=== PATIENT | male | born 2000 | race African-American/Black ===

== ENCOUNTER 2019-05-15 22:53 | Emergency (ER) | payer OTHER ==
[~2019-05-15] VITALS: Ht 167.6 cm; Wt 79.5 kg
[2019-05-15 23:04] VITALS: BP 139/89; PULSE 64; TEMP 98.8
== END 2019-05-15 23:10 | disposition left against medical advice (07) ==
LOC: COL.ER 22:53
DX: R19.7 Diarrhea, unspecified (principal); R10.9 Unspecified abdominal pain

== ENCOUNTER 2019-10-09 19:58 | Emergency (ER) | payer OTHER ==
[~2019-10-09] VITALS: Ht 167.6 cm; Wt 79.5 kg
[2019-10-09 21:06] VITALS: BP 130/40; PULSE 60
== END 2019-10-09 21:05 | disposition home or self-care (01) ==
LOC: COL.ER 19:58
DX: F41.9 Anxiety disorder, unspecified (principal)